=== PATIENT | female | born 1970 | race Two or more races ===

== ENCOUNTER → 2019-10-25 10:01 | Outpatient (CLI) | payer SELFPAY ==
[2019-10-25 10:27] LABS: BASOPHILS 0.2 % (0-2); EOSINOPHILS 1.5 % (0-7); HEMATOCRIT 40.2 % (36.0-48.0); HEMOGLOBIN 13.4 g/dL (12-16); IMMATURE GRANULOCYTES 0.2 % (0-5); LYMPHOCYTES 42.7 % (15-50); MCH 30.5 pg (26.0-34.0); MCHC 33.3 g/dL (31.0-37.0); MCV 91.4 fL (80.0-100.0); MONOCYTES 9.9 % (2-11); NEUTROPHILS 45.5 % (40-80); PLATELET COUNT 257 10x3/uL (130-400); RDW 12.5 % (11.5-14.5); WBC 5.2 10x3/uL (4.8-10.8)
[2019-10-25 10:31] LABS: CALC OSMOLALITY 282 mosm/kg (275-300); CALCIUM 8.6 mg/dL (8.5-10.1); CARBON DIOXIDE 29.8 mmol/L (21.0-32.0); CHLORIDE - SERUM 108 mmol/L (98-107); CREATININE - SERUM 0.5 mg/dL (0.6-1.3); GLUCOSE 91 mg/dL (74-106); POTASSIUM - SERUM 3.9 mmol/L (3.5-5.1); SODIUM 142 mmol/L (136-145); UREA NITROGEN 13 mg/dL (7-18); eGFR NON AFRICAN AMERICAN > 90 mL/min (90-120)
== END | disposition home or self-care (01) ==
LOC: D.LAB 10:01
PROVIDERS: ATTEND Family Medicine
DX: M19.91 Primary osteoarthritis, unspecified site (principal); N39.0 Urinary tract infection, site not specified; R10.9 Unspecified abdominal pain